=== PATIENT | female | born 1955 | race Caucasian/White ===

== ENCOUNTER → 2019-09-26 | Outpatient (CLI) | payer OTHER ==
--- NOTE | 2019-09-26 15:49 | KCIC ---
Coronary artery calcium score dated 09/26/2019. No comparison available. Clinical Indication: Calcium screening. Family history of heart disease. Hyperlipidemia. Technical factors:: High resolution, computed tomography of the heart was performed with ECG gating and suspended respiration. No contrast material was administered. Post processing was performed on the 3-D computer workstation using diastolic phase images to measure the amount of coronary vascular calcium. Scoring was performed utilizing the Agatston Method. PQRS compliance Statement One or more of the following individualized dose reduction techniques were utilized for this study: 1. Automated exposure control 2. Adjustment of the mA and/or kV according to patient size 3. Use of iterative reconstruction technique Results: Thorax: There is a 5.6 mm noncalcified lung nodule within the right middle lobe, lateral segment. There is a 4 mm noncalcified peripheral lateral basal segment nodule of the right lower lobe. No significant abnormality of the mediastinum is seen. Note that this CT exam is limited to the heart and adjacent structures. Coronary arteries: Left main coronary artery: 0 Left anterior descending coronary artery: 5.1. Lesser complex coronary artery: 0. Right coronary artery: 0. Total coronary artery calcium score 5.1. Information is based on an analysis of the coronary arteries only. Calcium deposits do not correspond directly to the percentage of narrowing of the arteries. They do correlate directly to the amount of coronary artery plaque and to the risk of future coronary artery disease. These calcium deposits usually begin to form years before any symptoms develop. Early detection and modification of risk factors, such as smoking and cholesterol intake, can slow the progress of coronary artery disease. A low score suggests a low likelihood of coronary artery disease, but does not exclude the possibility of significant coronary artery narrowing. The results should be discussed with your physician taking into account other risk factors such as age, gender, family history, diabetes, smoking or high cholesterol levels. Should you ever experience chest pain, difficulty breathing, discomfort radiating into your neck or arm, or discomfort combined with lightheadedness, sweating, fainting or nausea, you should seek prompt medical attention. Conclusion: 1. Coronary atherosclerosis is present, limited amount. 2. Low risk of cardiovascular event. 3. 2 lung nodules are seen on the right side which are less than 6 mm in size. If the patient is at high risk for malignancy, then recommend a chest CT in 12 months as per Fleischner guidelines. Electronically signed by: Antonio Vidal MD (09/26/2019 3:46 PM) [id number]
== END | disposition home or self-care (01) ==
LOC: KCIC CT 13:07
PROVIDERS: ATTEND Family Medicine
DX: Z13.6 Encounter for screening for cardiovascular disorders (principal); I25.10 Atherosclerotic heart disease of native coronary artery without angina pectoris; R91.8 Other nonspecific abnormal finding of lung field; Z82.49 Family history of ischemic heart disease and other diseases of the circulatory system
CPT/HCPCS: 75571